=== PATIENT | male | born 1945 | race Caucasian/White ===

== ENCOUNTER 2018-06-20 06:29 | Emergency (ER) | payer MEDICARE ==
[~2018-06-20] VITALS: Ht 177.8 cm; Wt 84.4 kg
--- NOTE | 2018-06-20 07:17 | PHYS DOC ---
Past Medical History Past Medical History: CAD, GERD, High Cholesterol, Hypertension Past Surgical History: Angioplasty Additional Information: Denies smoking Alcohol Use: None Drug Use: None Adult General Chief Complaint Chief Complaint: LOWER EXTREMITY EDEMA HPI HPI Patient is a 73 year old male who presents with complaining of left lower extremity edema for one week. Patient complaining of mild edema that started from ankle and gradually extended to all areas of lower extremity. Patient complaining of exertional left lower extremity pain since yesterday with walking to his mailbox as a moderate pain and rated his pain 6/10 that resolved with rest. Patient denies injury, focal neuro deficit, fever or chills, change of color of his leg, history of DVT and recent immobilization, shortness of breath and chest pain. Patient denies any pain with nonbearing weight. Review of Systems Review of Systems Constitutional: Denies fever or chills [] Eyes: Denies change in visual acuity, redness, or eye pain [] HENT: Denies nasal congestion or sore throat [] Respiratory: Denies cough or shortness of breath [] Cardiovascular: No additional information not addressed in HPI [] GI: Denies abdominal pain, nausea, vomiting, bloody stools or diarrhea [] : Denies dysuria or hematuria [] Musculoskeletal: Denies back pain, reports joint pain [] Integument: Denies rash or skin lesions [] Neurologic: Denies headache, focal weakness or sensory changes [] Endocrine: Denies polyuria or polydipsia [] All other systems were reviewed and found to be within normal limits, except as documented in this note. Current Medications Current Medications Current Medications Medications (Trade) Dose Ordered Sig/[facility] Start Time Stop Time Status Last Admin Dose Admin Enoxaparin Sodium (Lovenox 80mg Syringe) 80 mg 1X ONCE 06/20/18 07:30 06/20/18 07:31 DC 06/20/18 07:36 80 MG Allergies Allergies Allergies Coded Allergies Type Severity Reaction Last Updated Verified No Known Drug Allergies 06/20/18 No Physical Exam Physical Exam Constitutional: Well developed, well nourished, no acute distress, non-toxic appearance. [] HENT: Normocephalic, atraumatic. Eyes: PERRLA, EOMI, conjunctiva normal, no discharge. [] Neck: Normal range of motion, no tenderness, supple, no stridor. [] Cardiovascular:Heart rate regular rhythm, no murmur [] Lungs & Thorax: Bilateral breath sounds clear to auscultation [] Skin: Warm, dry, no erythema, no rash. [] Back: No tenderness, no CVA tenderness. [] Extremities: Left lower extremity with mild edema and increased the size of lower leg with mild erythema, no palpable pulses in dorsalis pedis and tibialis posterior, no paresthesia or pallor, no tenderness, no clubbing, ROM intact. [] Neurologic: Alert and oriented X 3, normal motor function, normal sensory function, no focal deficits noted. [] Psychologic: Affect normal, judgement normal, mood normal. [] Current Patient Data Vital Signs Vital Signs Date Time Temp Pulse Resp B/P (MAP) Pulse Ox O2 Delivery O2 Flow Rate FiO2 06/20/18 06:35 97.5 78 20 174/83 (113) 97 Room Air 97.5 Lab Values Laboratory Tests Test 06/20/18 06:45 White Blood Count 6.4 x10^3/uL (4.0-11.0) Red Blood Count 5.33 x10^6/uL (4.30-5.70) Hemoglobin 15.8 g/dL (13.0-17.5) Hematocrit 46.2 % (39.0-53.0) Mean Corpuscular Volume 87 fL (79-100) Mean Corpuscular Hemoglobin 30 pg (25-35) Mean Corpuscular Hemoglobin Concent 34 g/dL (31-37) Red Cell Distribution Width 13.2 % (11.5-14.5) Platelet Count 112 x10^3/uL (140-400) L Neutrophils (%) (Auto) 70 % (31-73) Lymphocytes (%) (Auto) 17 % (24-48) L Monocytes (%) (Auto) 11 % (0-9) H Eosinophils (%) (Auto) 2 % (0-3) Basophils (%) (Auto) 1 % (0-3) Neutrophils # (Auto) 4.5 x10^3uL (1.8-7.7) Lymphocytes # (Auto) 1.1 x10^3/uL (1.0-4.8) Monocytes # (Auto) 0.7 x10^3/uL (0.0-1.1) Eosinophils # (Auto) 0.1 x10^3/uL (0.0-0.7) Basophils # (Auto) 0.1 x10^3/uL (0.0-0.2) Prothrombin Time 12.4 SEC (11.7-14.0) Prothrombin Time INR 1.0 (0.8-1.1) PTT 26 SEC (24-38) Sodium Level 143 mmol/L (136-145) Potassium Level 4.5 mmol/L (3.5-5.1) Chloride Level 105 mmol/L (98-107) Carbon Dioxide Level 31 mmol/L (21-32) Anion Gap 7 (6-14) Blood Urea Nitrogen 21 mg/dL (8-26) Creatinine 1.0 mg/dL (0.7-1.3) Estimated GFR (Cockcroft-Gault) 73.2 BUN/Creatinine Ratio 21 (6-20) H Glucose Level 128 mg/dL (70-99) H Calcium Level 9.1 mg/dL (8.5-10.1) Total Bilirubin 0.4 mg/dL (0.2-1.0) Aspartate Amino Transferase (AST) 20 U/L (15-37) Alanine Aminotransferase (ALT) 29 U/L (16-63) Alkaline Phosphatase 75 U/L (46-116) Troponin I Quantitative < 0.017 ng/mL (0.000-0.055) Total Protein 7.9 g/dL (6.4-8.2) Albumin 4.0 g/dL (3.4-5.0) Albumin/Globulin Ratio 1.0 (1.0-1.7) Laboratory Tests 06/20/18 06:45 Laboratory Tests 06/20/18 06:45 EKG EKG EKG interpreted by me. EKG at 0 651 showed normal sinus rhythm, prolonged [place] interval, abnormal left axis deviation, nonspecific intraventricular block, no acute ST and T-wave abnormalities. Radiology/Procedures Radiology/Procedures [facility] [address] [place] [address] IMAGING REPORT Signed PATIENT: DELIA CARR ACCOUNT: [id number] : 1945 LOCATION: ER AGE: 73 SEX: M EXAM STATUS: REG ER ORD. PHYSICIAN: KEENAN CONNELLY MD REASON: pain and edema for one week PROCEDURE: VENOUS LOWER EXTREMITY LEFT Left lower extremity venous ultrasound, 06/20/2018: HISTORY: Left leg pain Duplex evaluation of the major deep veins in the left lower extremity was performed including grayscale, color-flow and spectral Doppler analysis. There is occlusive thrombus throughout the left common femoral and superficial femoral veins. This extends into the deep femoral vein. There is partial thrombosis of the popliteal vein. The posterior tibial and peroneal veins in the left calf appear patent. IMPRESSION: Extensive deep vein thrombosis in the left femoral and popliteal veins as described above. Electronically signed by: Ugo Herrera MD (06/20/2018 7:52 AM) [facility] DICTATED and SIGNED BY: UGO HERRERA MD DATE: 06/20/18 075 [facility] [address] [place], [place] [id number] IMAGING REPORT Signed PATIENT: DELIA CARR ACCOUNT: [id number] : 1945 LOCATION: ER AGE: 73 SEX: M EXAM STATUS: REG ER ORD. PHYSICIAN: KEENAN CONNELLY MD REASON: pain and edema for one week PROCEDURE: DUPLEX LOWER EXT ARTERIAL LEFT Left lower extremity arterial ultrasound, 06/20/2018: HISTORY: Leg pain Duplex evaluation of the major arteries in the left lower extremity was performed including grayscale, color-flow and spectral Doppler analysis. No prominent focal plaque formation is identified. There are triphasic and biphasic Doppler waveforms in the left common femoral, superficial femoral, deep femoral and popliteal arteries. No significant focal velocity acceleration is seen to suggest significant stenosis. Patent anterior tibial, posterior tibial and peroneal arteries are present in the left lower leg demonstrating good biphasic Doppler waveforms. The left dorsalis pedis artery is patent with a similar biphasic Doppler waveform. IMPRESSION: No duplex evidence of significant arterial occlusive disease in the left lower extremity. Electronically signed by: Ugo Herrera MD (06/20/2018 8:00 AM) [facility] [place] DICTATED and SIGNED BY: UGO HERRERA MD DATE: 06/20/18 0752 Course & Med Decision Making Course & Med Decision Making Pertinent Labs and Imaging studies reviewed. (See chart for details) Evaluation of patient in ER showed 73-year-old male patient without risk factors for DVT presented with left lower extremity edema and pain. Patient had stable vital sign without hypoxia or tachycardia unremarkable labs. Lower extremity Doppler study showed extensive DVT. Arterial study was unremarkable. Patient wants of outpatient treatment. Patient treated with Lovenox in ER and prescription for Lovenox was given and instructed to follow-up with his primary care physician today for usp anticoagulation treatment. Dragon Disclaimer Dragon Disclaimer This electronic medical record was generated, in whole or in part, using a voice recognition dictation system. 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
--- NOTE | 2018-06-20 07:22 | EKG ---
[facility] [address] [place] [address] Test Date: 2018-06-20 Test Time: 06:51:26 Pat Name: DELIA CARR Department: Room: Gender: Male Recreational Counselor: : 1945 Requested By: KEENAN CONNELLY Order Number: [id number] Reading MD: Sebastian Mcguire Measurements Intervals [place] Rate: 75 P: 180 FL: 0 QRS: -89 QRSD: 214 T: -28 QT: 476 QTc: 535 Interpretive Statements SINUS RHYTHM NONSPECIFIC ST-T WAVE CHANGES. Electronically Signed On 06-26-2018 11:46:59 RN NURSERY by Sebastian Mcguire
[2018-06-20 07:32] LABS: BASO # 0.1 x10^3/uL (0.0-0.2); BASO % 1 % (0-3); EOS # 0.1 x10^3/uL (0.0-0.7); EOS % 2 % (0-3); HEMATOCRIT 46.2 % (39.0-53.0); HEMOGLOBIN 15.8 g/dL (13.0-17.5); LYMPH # 1.1 x10^3/uL (1.0-4.8); LYMPH % 17 % (24-48); MEAN CORPUSCULAR HEMOGLOBIN 30 pg (25-35); MEAN CORPUSCULAR HGB CONC 34 g/dL (31-37); MEAN CORPUSCULAR VOLUME 87 fL (79-100); MONO # 0.7 x10^3/uL (0.0-1.1); MONO % 11 % (0-9); NEUT # 4.5 x10^3uL (1.8-7.7); NEUT % 70 % (31-73); PLATELET COUNT 112 x10^3/uL (140-400); RED BLOOD COUNT 5.33 x10^6/uL (4.30-5.70); RED CELL DISTRIBUTION WIDTH 13.2 % (11.5-14.5); WHITE BLOOD COUNT 6.4 x10^3/uL (4.0-11.0)
[2018-06-20 07:42] LABS: PROTHROMBIN TIME PATIENT 12.4 SEC (11.7-14.0)
[2018-06-20 07:43] LABS: CALCIUM 9.1 mg/dL (8.5-10.1); GFR 73.2; POTASSIUM 4.5 mmol/L (3.5-5.1)
[2018-06-20 07:50] LABS: TOTAL BILIRUBIN 0.4 mg/dL (0.2-1.0); TOTAL PROTEIN 7.9 g/dL (6.4-8.2)
--- NOTE | 2018-06-20 07:56 | RAD ---
Left lower extremity venous ultrasound, 06/20/2018: HISTORY: Left leg pain Duplex evaluation of the major deep veins in the left lower extremity was performed including grayscale, color-flow and spectral Doppler analysis. There is occlusive thrombus throughout the left common femoral and superficial femoral veins. This extends into the deep femoral vein. There is partial thrombosis of the popliteal vein. The posterior tibial and peroneal veins in the left calf appear patent. IMPRESSION: Extensive deep vein thrombosis in the left femoral and popliteal veins as described above. Electronically signed by: Ugo Herrera MD (06/20/2018 7:52 AM) [facility]
--- NOTE | 2018-06-20 08:04 | RAD ---
Left lower extremity arterial ultrasound, 06/20/2018: HISTORY: Leg pain Duplex evaluation of the major arteries in the left lower extremity was performed including grayscale, color-flow and spectral Doppler analysis. No prominent focal plaque formation is identified. There are triphasic and biphasic Doppler waveforms in the left common femoral, superficial femoral, deep femoral and popliteal arteries. No significant focal velocity acceleration is seen to suggest significant stenosis. Patent anterior tibial, posterior tibial and peroneal arteries are present in the left lower leg demonstrating good biphasic Doppler waveforms. The left dorsalis pedis artery is patent with a similar biphasic Doppler waveform. IMPRESSION: No duplex evidence of significant arterial occlusive disease in the left lower extremity. Electronically signed by: Ugo Herrera MD (06/20/2018 8:00 AM) [facility]
[2018-06-20 08:07] VITALS: BP 172/88
[2018-06-20] MEDS ORDERED: ENOX80DI SQ (08:16)
== END 2018-06-20 08:40 | disposition home or self-care (01) ==
LOC: ER 06:29
DX: I82.412 Acute embolism and thrombosis of left femoral vein (principal); I82.432 Acute embolism and thrombosis of left popliteal vein; I25.10 Atherosclerotic heart disease of native coronary artery without angina pectoris; K21.9 Gastro-esophageal reflux disease without esophagitis; E78.00 Pure hypercholesterolemia, unspecified; I10 Essential (primary) hypertension
CPT/HCPCS: 36415; 80053; 84484; 85025; 85610; 85730; 93005; 93926; 93971; 96372; 99284; J1650